=== PATIENT | female | born 2000 | race Caucasian/White ===

== ENCOUNTER 2020-11-11 16:17 | Outpatient (CLI) | payer OTHER | END 2020-11-11 16:20 | disposition home or self-care (01) | LOC: LAB 16:17 | PROVIDERS: ATTEND General Practice | DX: Z20.818 Contact with and (suspected) exposure to other bacterial communicable diseases (principal) ==

== ENCOUNTER 2020-11-18 16:16 | Outpatient (CLI) | payer OTHER | END 2020-11-18 16:19 | disposition home or self-care (01) | LOC: LAB 16:16 | PROVIDERS: ATTEND General Practice | DX: Z03.818 Encounter for observation for suspected exposure to other biological agents ruled out (principal) ==

== ENCOUNTER 2020-11-25 14:27 | Outpatient (CLI) | payer OTHER | END 2020-11-25 14:36 | disposition home or self-care (01) | LOC: LAB 14:27 | DX: Z20.828 Contact with and (suspected) exposure to other viral communicable diseases (principal) ==

== ENCOUNTER 2021-02-28 15:08 | Emergency (ER) | payer OTHER ==
[~2021-02-28] VITALS: Ht 180.3 cm; Wt 106.6 kg
[2021-02-28] MEDS ORDERED: ZITHROMAX500 MG PO (16:10)
[2021-02-28] MEDS ORDERED: TUSNEL LIQUID178 ML PO (16:10)
[2021-02-28] MEDS ORDERED: ZYRTEC10 M3 PO (16:10)
== END 2021-02-28 16:22 | disposition home or self-care (01) ==
LOC: ER 15:08
DX: R09.81 Nasal congestion (principal); R05.9 Cough, unspecified

== ENCOUNTER 2021-07-29 12:55 | Emergency (ER) | payer OTHER ==
[~2021-07-29] VITALS: Ht 170.2 cm; Wt 95.3 kg
[~2021-07-29 12:55] MED LIST: TUSNEL LIQUID178 ML PO; ZITHROMAX500 MG PO; ZYRTEC10 M3 PO
== END 2021-07-29 15:04 | disposition home or self-care (01) ==
LOC: ER 12:55
DX: J03.90 Acute tonsillitis, unspecified (principal); R09.81 Nasal congestion

== ENCOUNTER 2022-04-06 08:23 | Outpatient (CLI) | payer OTHER | END 2022-04-06 08:39 | disposition home or self-care (01) | LOC: MRI 08:23 | PROVIDERS: ATTEND Obstetrics & Gynecology Obstetrics | DX: E22.1 Hyperprolactinemia (principal) | CPT/HCPCS: 70553 ==

== ENCOUNTER 2022-07-02 20:11 | Emergency (ER) | payer OTHER ==
[~2022-07-02] VITALS: Ht 172.7 cm; Wt 117.9 kg
[2022-07-02] MEDS ORDERED: ZYRTEC10 MG PO (21:08)
[2022-07-02] MEDS ORDERED: TUSNEL LIQUID178 ML PO (21:08)
[2022-07-02] MEDS ORDERED: ZITHROMAX500 MG PO (21:08)
== END 2022-07-02 22:03 | disposition home or self-care (01) ==
LOC: ER 20:11
DX: R09.81 Nasal congestion (principal); J00 Acute nasopharyngitis [common cold]

== ENCOUNTER 2023-04-26 14:03 | Outpatient (CLI) | payer OTHER ==
[~2023-04-26 14:03] MED LIST changes: +ZYRTEC10 MG PO
== END 2023-04-26 14:06 | disposition home or self-care (01) ==
LOC: NUCLEAR 14:03
PROVIDERS: ATTEND General Practice
DX: I82.409 Acute embolism and thrombosis of unspecified deep veins of unspecified lower extremity (principal)

== ENCOUNTER 2023-05-09 20:44 | Emergency (ER) | payer OTHER ==
[~2023-05-09] VITALS: Ht 172.7 cm; Wt 115.7 kg
[2023-05-09] MEDS ORDERED: ADULT LOW DOSE81 M1 PO (21:42)
[2023-05-09] MEDS ORDERED: CILOSTAZOL50 MG PO (21:43)
== END 2023-05-09 23:03 | disposition home or self-care (01) ==
LOC: ER 20:44
DX: R53.81 Other malaise (principal)

== ENCOUNTER 2023-05-12 09:51 | Outpatient (CLI) | payer OTHER ==
[~2023-05-12 09:51] MED LIST changes: +ADULT LOW DOSE81 M1 PO; +CILOSTAZOL50 MG PO
[2023-05-12 11:07] LABS: URINE APPEARANCE Clear; URINE BILIRRUBIN Negative (NEGATIVE); URINE BLOOD Negative; URINE COLOR Yellow; URINE GLUCOSE Negative (NEGATIVE); URINE LEUKOCYTE Negative; URINE NITRATE Negative; URINE PROTEIN Negative (NEGATIVE); URINE UROBILINOGEN 0.2 E.U./dl
[2023-05-12 11:10] LABS: URINE BACTERIA 398.1 uL (0.0-1933); URINE EPITHELIAL CELLS 8.6 uL (0.0-38.8); URINE RBC 3.3 uL (0.0-20.8); URINE WBC 3.3 uL (0.0-23.2)
[2023-05-12 11:42] LABS: HEMATOCRIT 38.5 % (36.0-45.00); HEMOGLOBIN 12.9 g/dL (12.0-15.00); MEAN CELL VOLUME 84.4 fL (80.00-100.00); MEAN CORPUSCULAR HEMOGLOBIN 28.3 pg (27.00-32.0); MEAN CORPUSCULAR HGB CONC 33.5 g/dl (32.0-36.0); PLATELET COUNT 255 K/uL (150-450); RED BLOOD COUNT 4.56 M/uL (4.00-6.00); RED CELL DISTRIBUTION WIDTH 14.4 % (11.5-14.5)
[2023-05-12 12:01] LABS: ERYTHROCYTE SEDIMENTATION RATE 38 mm/hr
[2023-05-12 12:07] LABS: BILIRUBIN TOTAL 0.58 mg/dL (0.3-1.2); CALCIUM 9.4 mg/dL (8.5-10.1); CHOL HDL RATIO 3.2 (0-5.0); CREATININE SERUM 0.7 mg/dL (0.55-1.02); GFR 102.8; GLOBULINA 4.2 G/DL (2.4-3.5); POTASSIUM 3.8 mEq/L (3.5-5.1); T4 TOTAL 7.92 UG/DL (4.8-13.9); TOTAL PROTEIN 8.2 gm/dL (6.4-8.2); TSH 0.365 uIU/mL (0.358-3.74)
[2023-05-12 12:13] LABS: C-REACTIVE PROTEIN 2.45 MG/DL (0.00-0.29)
[2023-05-13 14:07] LABS: PROLACTIN 29.4 ng/mL (4.8-33.4)
[2023-05-14 14:07] LABS: ANTI-THROMBIN III 101 % (75-135)
== END 2023-05-12 14:43 | disposition home or self-care (01) ==
LOC: LAB 09:51
PROVIDERS: ATTEND Internal Medicine
DX: I11.9 Hypertensive heart disease without heart failure (principal); R68.89 Other general symptoms and signs; R31.9 Hematuria, unspecified; E03.9 Hypothyroidism, unspecified; E11.9 Type 2 diabetes mellitus without complications; E78.00 Pure hypercholesterolemia, unspecified; D69.1 Qualitative platelet defects

== ENCOUNTER 2023-05-17 08:46 | Outpatient (CLI) | payer OTHER | END 2023-05-17 09:03 | disposition home or self-care (01) | LOC: MRI 08:46 | PROVIDERS: ATTEND Internal Medicine | DX: D35.2 Benign neoplasm of pituitary gland (principal) | CPT/HCPCS: 70551 ==

== ENCOUNTER 2023-06-26 10:46 | Outpatient (CLI) | payer OTHER | END 2023-06-26 10:56 | disposition home or self-care (01) | LOC: RAD 10:46 | PROVIDERS: ATTEND Internal Medicine Rheumatology | DX: M17.0 Bilateral primary osteoarthritis of knee (principal); M06.4 Inflammatory polyarthropathy; M25.521 Pain in right elbow; M25.522 Pain in left elbow ==